=== PATIENT | female | born 1935 | race Caucasian/White ===

== ENCOUNTER 2016-12-30 09:59 | Observation (INO) | payer MEDICARE, OTHER ==
[2016-12-30 11:06] LABS: URINE MUCUS NONE SEEN (Up to 25%); URINE RBC NONE SEEN (0-5/hpf); URINE SQUAMOUS EPITHELIAL CELL NONE SEEN (<= 15/hpf); URINE WBC NONE SEEN (0-4/hpf)
[2016-12-30 11:17] LABS: URINE APPEARANCE CLEAR; URINE COLOR YELLOW
[2016-12-30 11:18] LABS: URINE BILIRUBIN NEGATIVE (NEGATIVE); URINE BLOOD NEGATIVE (NEGATIVE); URINE GLUCOSE NORMAL (NEGATIVE); URINE KETONE NEGATIVE (NEGATIVE); URINE LEUKOCYTE ESTERASE NEGATIVE (NEGATIVE); URINE NITRITE NEGATIVE (NEGATIVE); URINE PH 5.5 (5-7); URINE PROTEIN NEGATIVE (NEG - TRACE); URINE UROBILINOGEN 0.2mg/dL (Normal) (NEG-1mg/dL)
[2016-12-30 11:30] LABS: BASOPHILS 0.3 % (0.0-2.0); EOSINOPHILS 3.2 % (0.0-6.0); EOSINOPHILS# 0.1 X 10^3uL (0.0-0.4); HEMATOCRIT 34.5 % (36.0-48.0); HEMOGLOBIN 11.7 g/dL (12.0-16.0); LYMPHOCYTES 22.5 % (20.0-40.0); LYMPHOCYTES# 0.9 X 10^3uL (0.8-3.8); MEAN CORPUS. HGB CONCENTRATION 34.1 g/dL (32.0-36.0); MEAN CORPUSCULAR HEMOGLOBIN 32.9 pg (29.0-35.0); MEAN PLATELET VOLUME 7.2 fL (7.4-10.4); MONOCYTES 0.8 % (2.0-10.0); NEUTROPHILS 73.2 % (54.0-75.0); NEUTROPHILS# 2.8 X 10^3uL (2.6-6.7); PLATELET COUNT 178 X 10^3uL (130-440); RED BLOOD COUNT 3.57 X 10^6uL (4.20-6.10); RED CELL DISTRIBUTION WIDTH 12.4 % (11.5-14.5); URINE TRANSITIONAL EPI CELL NONE SEEN (<=5/hpf); WHITE BLOOD COUNT 3.9 X 10^3uL (3.9-10.7)
[2016-12-30 11:31] LABS: URINE BACTERIA NONE SEEN (<10/hpf)
[2016-12-30 11:32] LABS: URINE AMORPHOUS SEDIMENT NONE SEEN (Up to 25%)
[2016-12-30 11:38] LABS: A/G RATIO 1.2; ALKALINE PHOSPHATASE 75 U/L (38-126); ALT 20 U/L (9-52); AST 22 U/L (14-36); BILIRUBIN, TOTAL 0.6 mg/dL (0.2-1.3); BLOOD UREA NITROGEN 22 mg/dL (7-17); CALCIUM 9.6 mg/dL (8.4-10.2); CHLORIDE 98 mmol/L (98-107); GLUCOSE 100 mg/dL (70-100); LIPASE 120 U/L (23-300); POTASSIUM 4.1 mmol/L (3.5-5.1); SODIUM 135 mmol/L (137-145); TOTAL PROTEIN 7.3 g/dL (6.3-8.2)
[2016-12-30] MEDS ORDERED: ZOLPIDEM TARTRATE 5 MG TABLET PO PRN (12:52)
[2016-12-30] MEDS ORDERED: MAG-AL PLUS XS SUSP 30 ML UDC PO PRN (12:52)
[2016-12-30] MEDS ORDERED: HOME MEDICATION LIST NEEDED 1 EA EACH MC ONE (12:52)
[2016-12-30] MEDS ORDERED: ACETAMINOPHEN 325 MG TABLET PO PRN (12:52)
[2016-12-30] MEDS ORDERED: ONDANSETRON ODT 4 MG TAB.RAPDIS PO PRN (13:06)
--- NOTE | 2016-12-30 13:11 | ER NURSING DOCUMENTATION ---
Nurse's Notes [facility] Name:Kami Dalal Age:81 yrs Sex:Female :1935 Arrival Date:12/30/2016 Time:09:59 Bed4 Private MD:Paulo Atkins Diagnosis:Weakness;Difficulty Walking;Dehydration Presentation: 12/30 10:02 Presenting complaint: Patient states: Pt has been steadily getting weaker, getting tg chemo. Recent Diarrhea and vomiting (none today though). No fevers or chills. Transition of care: patient was not received from another setting of care. 10:02 Method Of Arrival: EMS: courtesy ride tg 10:02 Acuity: DELROY 2 tg Triage Assessment: 11:05 General: Appears in no apparent distress, Behavior is anxious, cooperative. Pain:. tg Pain: Denies pain. EENT:. Neuro: Level of Consciousness is awake, alert, Pt is a&o x4, but a little slow to respond. Reports feeling tired, weak, and dizzy, even laying down. Weakness Gait is unsteady, Speech Facial symmetry appears normal, Reports dizziness. Cardiovascular: Capillary refill < 3 seconds Rhythm is sinus rhythm. Respiratory: Respiratory effort is even, unlabored, Denies shortness of breath. GI:. Derm: Skin is pale. 13:09 Respiratory: Onset: The symptoms/episode began/occurred at an unknown time. the patient lp has mild shortness of breath. Historical: - Allergies: No known drug Allergies; - Home Meds: 1. Ocuvite oral 2. B Complex oral 3. multivitamin with minerals oral 4. Hydrocortisone Topical - PMHx: Eczema; Pseudophakia; Dry Eye Syndrome; esophageal and stomach cancer; Chest Pain (November 01, 2015); - PSHx: CHOLECYSECTOMY; - Tetanus: < 10 years. - Ebola Screening: : Patient negative for fever greater than or equal to 101.5 degrees Fahrenheit, and additional compatible Ebola Virus Disease symptoms. Patient denies exposure to infectious person. Patient denies travel to an Ebola-affected area in the 21 days before illness onset. No symptoms or risks identified at this time. . - Immunization history: Pneumococcal vaccine status is unknown, Flu Vaccine unknown. - Social history: Smoking status: Patient states was never smoker of tobacco. Screenin:09 Infectious Disease Risk Unable to Obtain. Abuse screen: Denies threats or abuse. Denies tg injuries from another. Nutritional screening: No deficits noted. Assessment: 12:09 Reassessment:. tg 13:09 Respiratory: Airway is patent Breath sounds are clear bilaterally. lp Vital Signs: 10:12 BP 135 / 82; Pulse 84; Resp 20; Temp 98(O); Pulse Ox 98% on R/A; Weight 49.9 kg (R); tg Height 5 ft. 4 in. (162.56 cm) (R); Pain 0/10; 13:09 BP 136 / 67; lp 10:12 Body Mass Index 18.88 (49.90 kg, 162.56 cm) tg ED Course: 10:00 Patient arrived in ED. ds 10:01 Paulo Atkins MD is Private Physician. ds 10:01 Osei Marcial MD is Attending Physician. clem 10:01 Vivek Carver RN is Primary Nurse. tg 10:04 Triage completed. tg 10:37 EKG done. (by ED staff). Reviewed by Osei Marcial MD. tg 10:49 Inserted Accessed Port-a-Cath using accessed w/ # 20 Galindo needle, sterile technique, tg per hospital protocol. Clean & dry. Good blood return. 12:03 Paulo Atkins MD is Admitting Physician. 12:14 Assisted to bathroom. rh 13:09 Valuables Remains with patient. lp Administered Medications: 10:48 Drug: NS 0.9% 1000 ml; Route: IV; Rate: bolus; Site: left subclavian; Delivery: [place] tg Tubing; 11:30 Follow up: IV Status: Completed infusion; IV Intake: 1000ml rh Intake: 11:30 IV: 1000ml; Total: 1000ml. rh Outcome: 12:04 Decision to Admit by Provider. clem 13:08 Admitted to Med/surg accompanied by nurse. lp 13:08 Condition: stable 13:08 Report given to Madalyn Vines RN 13:08 Instructed on need to admit 13:10 Patient left the ED. lp Signatures: Vivek Carver RN RN Amara Claudio RN RN lp Srot, Asia, Reg Reg Osei Marcial MD MD Marium Basilio
--- NOTE | 2016-12-30 13:11 | ER PHYSICIAN DOCUMENTATION ---
Physician Documentation [facility] Name:Kami Dalal Age:81 yrs Sex:Female :1935 Arrival Date:12/30/2016 Time:09:59 Bed4 Private MD:Paulo Atkins ED, John Disposition: 12/30/16 12:04 Admit ordered for Paulo Atkins. Preliminary diagnosis are Weakness, Difficulty Walking, Dehydration. - Bed requested for Medical/Surgical. - Condition is Fair. - Problem is new. - Symptoms are unchanged. 23 HR OBS Yes HPI: 12/30 11:02 This 81 yrs old Female presents to ER via EMS with complaints of Shortness Of jm Breath. 11:02 The patient's problem is reported as weakness, that is generalized. Onset: The jm symptom(s)/episode began/occurred yesterday, and became worse today. Duration: The episode is continuous. Context: Possible contributing factors include: chemo last week. The symptoms are aggravated by nothing. Associated signs and symptoms: Pertinent positives: weakness, mental slowness. Severity of symptoms: At their worst the symptoms were severe. The patient has not experienced similar symptoms in the past. The patient has been recently seen by a physician: Dr. Mcgill . Pt here for weakness. Pt w hx of advanced esophageal CA that is only amenable to chemo. Pt can only eat soft food and liquid. . Pt was supposed to make it down to [facility] today for labs, but was too weak to get out of bed. She came to the ER instead. She can barely get up and feels that she is foggy. She denies pain or trouble breathing. She had some vomiting and diarrhea 2 days ago. She has been trying to keep hydrated. . Historical: - Allergies: No known drug Allergies; - Home Meds: 1. Ocuvite oral 2. B Complex oral 3. multivitamin with minerals oral 4. Hydrocortisone Topical - PMHx: Eczema; Pseudophakia; Dry Eye Syndrome; esophageal and stomach cancer; Chest Pain (November 01, 2015); - PSHx: CHOLECYSECTOMY; - Tetanus: < 10 years. - Ebola Screening: : Patient negative for fever greater than or equal to 101.5 degrees Fahrenheit, and additional compatible Ebola Virus Disease symptoms. Patient denies exposure to infectious person. Patient denies travel to an Ebola-affected area in the 21 days before illness onset. No symptoms or risks identified at this time. . - Immunization history: Pneumococcal vaccine status is unknown, Flu Vaccine unknown. - Social history: Smoking status: Patient states was never smoker of tobacco. ROS: 11:35 Constitutional: Positive for fatigue, malaise, Negative for chills, fever. 11:35 ENT: Negative for sinus congestion, sinus pain, sore throat. 11:35 Cardiovascular: Negative for chest pain. 11:35 Respiratory: Negative for cough, shortness of breath. 11:35 Abdomen/GI: Positive for nausea, vomiting, diarrhea, Negative for abdominal pain. 11:35 : Negative for urinary symptoms, pelvic pain. 11:35 Neuro: Positive for weakness, Negative for dizziness, headache. 11:35 All other systems are negative. Exam: 11:35 Constitutional: The patient appears alert, awake, frail. 11:35 Eyes: Periorbital structures: appear normal, Conjunctiva: normal. 11:35 ENT: Nose: is normal, Voice: is normal. 11:35 Neck: Thyroid: appears normal, Trachea: is midline with no obvious abnormalities. 11:35 Cardiovascular: Rate: normal, Rhythm: irregular. 11:35 Respiratory: Respirations: normal, Breath sounds: are normal. 11:35 Abdomen/GI: Bowel sounds: normal, Palpation: abdomen is soft and non-tender. 11:35 Back: pain, is absent, CVA tenderness, is absent. 11:35 Skin: Appearance: Color: pink, Turgor: is good. 11:35 Neuro: Mentation: lucid, slow to respond, Memory: is normal. 11:35 Psych: Behavior/mood is pleasant, cooperative, Affect is calm. Vital Signs: 10:12 BP 135 / 82; Pulse 84; Resp 20; Temp 98(O); Pulse Ox 98% on R/A; Weight 49.9 kg (R); tg Height 5 ft. 4 in. (162.56 cm) (R); Pain 0/10; 13:09 BP 136 / 67; lp 10:12 Body Mass Index 18.88 (49.90 kg, 162.56 cm) tg MDM: 10:01 Patient medically screened. 12:05 Differential diagnosis: metabolic disorder, dehydration. Data reviewed: vital signs, nurses notes, old medical records, lab test result(s), EKG, radiologic studies, and as a result, I will admit patient. Test interpretation: by ED physician or midlevel provider: plain radiologic studies, ECG. Counseling: I had a detailed discussion with the patient and/or guardian regarding: the historical points, exam findings, and any diagnostic results supporting the discharge/admit diagnosis, lab results, radiology results, the need for further work-up and treatment in the hospital. ECG:. Physician consultation: Paulo Atkins MD regarding admission, and will see patient shortly, later today. ED course: Pt too weak to stand. Most likely deconditioning from her chemo and low appetite. . 12/30 11:31 Order name: CBC AUTO DIF, MDIF/RMOR IF IND; Complete Time: 11: [facility] 12/30 11:31 Order name: UA W/ MICRO -CULTURE IF IND; Complete Time: 11: [facility] 12/30 11:43 Order name: COMPREHENSIVE METABOLIC PANEL; Complete Time: 11: [facility] 12/30 11:43 Order name: LIPASE; Complete Time: 11: [facility] 12/31 06:06 Order name: COMPREHENSIVE METABOLIC PANEL [facility] 12/31 06:16 Order name: CBC AUTO DIF, MDIF/RMOR IF IND [facility] 12/30 15:05 Order name: CHEST; SINGLE [place]IEW [id number] [facility] 12/30 10:24 Order name: Pulse Ox Continuous; Complete Time: 10:49 12/30 10:24 Order name: Continuous Cardiac Monitoring; Complete Time: 10 12/30 10:24 Order name: 12-lead EKG; Complete Time: : EC:05 Rhythm is irregular with Multifocal PVCs. QRS interval is normal. QT interval is jm normal. No Q waves. T waves are Normal. No ST changes noted. Dispensed Medications: 10:48 Drug: NS 0.9% 1000 ml; Route: IV; Rate: bolus; Site: left subclavian; Delivery: [place] tg Tubing; 11:30 Follow up: IV Status: Completed infusion; IV Intake: 1000ml Signatures: Vivek Carver RN RN tg Pavlish, Lena, RN RN lp Meyer, John, MD MD jm Hofsess, Rachel
[2016-12-30] MEDS: LACTATED RINGERS 1,000 ML IV SCH (14:20)
--- NOTE | 2016-12-30 14:29 | RADIOLOGY REPORT ---
A limited single portable view of the chest is correlated with CT scan dated 02/2017. Heart and vessels are stable and unremarkable. The lung hoover are clear. No infiltrate, fluid or pneumothorax is seen. There has been interval placement of left sided PICC line. Position appears appropriate. Again noted is dextroscoliosis. IMPRESSION: Interval placement of left PICC line. No acute cardiopulmonary abnormality is identified. MTDD
[2016-12-30] MEDS ORDERED: MECLIZINE HCL 12.5 MG TABLET PO PRN (17:13)
[2016-12-30] MEDS ORDERED: MECLIZINE HCL 12.5 MG TABLET PO SCH (21:00)
[2016-12-31] MEDS ORDERED: MAGIC MOUTHWASH PO SCH
[2016-12-31] MEDS: LACTATED RINGERS 1,000 ML IV SCH ×2 (02:55→13:46)
[2016-12-31 05:59] LABS: A/G RATIO 1.1; ALBUMIN 3.5 g/dL (3.5-5.0); ALKALINE PHOSPHATASE 70 U/L (38-126); ALT 27 U/L (9-52); AST 19 U/L (14-36); BILIRUBIN, TOTAL 0.7 mg/dL (0.2-1.3); BLOOD UREA NITROGEN 11 mg/dL (7-17); CALCIUM 9.1 mg/dL (8.4-10.2); CHLORIDE 103 mmol/L (98-107); GLUCOSE 84 mg/dL (70-100); POTASSIUM 3.9 mmol/L (3.5-5.1); SODIUM 137 mmol/L (137-145); TOTAL PROTEIN 6.6 g/dL (6.3-8.2)
[2016-12-31 06:12] LABS: HEMOGLOBIN 11.1 g/dL (12.0-16.0); MEAN CORPUS. HGB CONCENTRATION 33.7 g/dL (32.0-36.0); MEAN CORPUSCULAR HEMOGLOBIN 32.1 pg (29.0-35.0); RED BLOOD COUNT 3.46 X 10^6uL (4.20-6.10)
[2016-12-31 06:13] LABS: BASOPHILS 0.2 % (0.0-2.0); EOSINOPHILS 4.6 % (0.0-6.0); EOSINOPHILS# 0.1 X 10^3uL (0.0-0.4); LYMPHOCYTES 39.6 % (20.0-40.0); LYMPHOCYTES# 0.9 X 10^3uL (0.8-3.8); MEAN PLATELET VOLUME 7.6 fL (7.4-10.4); MONOCYTES 1.1 % (2.0-10.0); NEUTROPHILS 54.5 % (54.0-75.0); NEUTROPHILS# 1.2 X 10^3uL (2.6-6.7); PLATELET COUNT 159 X 10^3uL (130-440); RED CELL DISTRIBUTION WIDTH 11.9 % (11.5-14.5)
[2016-12-31 06:15] LABS: WHITE BLOOD COUNT 2.3 X 10^3uL (3.9-10.7)
[2016-12-31] MEDS ORDERED: DOCUSATE SODIUM 100 MG CAPSULE PO SCH (09:15)
[2016-12-31] MEDS: MAGIC MOUTHWASH 90 ML BTL PO PRN ×2 (09:21→12:41)
[2016-12-31 10:52] VITALS: RESP 20
--- NOTE | 2016-12-31 11:20 | HISTORY & PHYSICAL ---
DATE OF ADMISSION: 12/30/16 ATTENDING PHYSICIAN: Paulo Atkins MD CHIEF COMPLAINT: Generalized weakness. HISTORY OF PRESENT ILLNESS: Patient has been recently diagnosed with a gastroesophageal cancer for which she is currently seeing Dr. Garay. She received her first chemotherapy on 12/22/16, 8 days ago. In the last 4 days, she has becoming increasingly and profoundly weak to the point that she has been unable to get out of bed in the last day. She has more difficulty thinking. She had some vomiting and diarrhea 2 days ago, but not since. She had some diffuse severe abdominal pain 3 days ago that resolved spontaneously, and has not had abdominal pain since. She has a slight cough and sore throat and mouth sores. No fevers, chills, nausea, constipation, myalgias, arthralgias, headache, dysuria, sinus pressure, coryza or postnasal drainage. She has been trying to push fluids but overall has had poor fluid and food intake. Her main form of nutrition has been Ensure and yogurt smoothies. She has a port in place. No falls. However, she feels that she is a high fall risk. ALLERGIES: None. MEDICATIONS Ondansetron PRN. Promethazine PRN. PAST MEDICAL HISTORY 1. Macular degeneration. 2. Gastroesophageal cancer followed by Dr. Adan and Dr. Garay. 3. Cholecystectomy 1981. 4. Bilateral cataract surgery. SOCIAL HISTORY: , 1 child and 2 stepchildren. 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 No smoking. Rare alcohol. FAMILY HISTORY: Father at 39 of myocardial infarction. Mother at 70 of asthma exacerbation. Brother of an myocardial infarction. REVIEW OF SYSTEMS: No heart, lung, kidney, liver, diabetes, thyroid, seizures, peptic ulcer disease, hypertension, hyperlipidemia, skin, allergy or bleeding disorders. No urinary problems. PREVENTATIVE HEALTH: Gets annual flu shot. Had Pneumovax. Prevnar 2014. PHYSICAL EXAMINATION VITAL SIGNS: Blood pressure 135/82, pulse 84, respiratory rate 20, temperature 98.0. Room air pulse oxygen 98%. Weight 49.9 kilos, height 5 foot 4 inches. GENERAL: Thin elderly female, NAD, alert and oriented x3. She appears profoundly weak and has decreased skin turgor. HEENT: EOMI. PERRL. Fundi difficult to visualize. Normal conjunctivae. TMs normal. No coryza. Pharynx not injected. Midline structures. Dry mouth. NECK: No lymphadenopathy. No thyromegaly. No carotid bruits. Neck supple. CHEST: Clear. No rales, rhonchi or wheezes. Good breath sounds and symmetry throughout. COR: RRR without murmurs, gallops, rubs or clicks. No jugular venous distention. No ectopy. ABDOMEN: Soft, nontender. No hepatosplenomegaly. No masses. No bruits. No inguinal nodes. Bowel sounds present. LOWER EXTREMITIES: No edema. Good peripheral pulses present. NEUROLOGIC: Did not have patient try to sit or stand but she was able to move arms and legs in bed. Sensory intact. DATA: White blood cell count 3.9, hemoglobin and hematocrit 11.7/34.5, platelets 178,000. Normal MCV. Sodium 135, potassium 4.1, chloride 98, CO2 24, BUN 22, creatinine 0.5, glucose 100, calcium 9.6, total bilirubin 0.6, AST 22, ALT 20, alkaline phosphatase 75, total protein 7.3, albumin 4.0, lipase 120. Urinalysis specific gravity 1.010, negative dipstick. Chest x-ray and EKG were reportedly unremarkable per the Emergency Room physician. ASSESSMENT 1. Profound weakness and dehydration, presumably related to recent chemotherapy. 2. Gastroesophageal cancer. PLAN 1. Gentle IV hydration with lactated ringers. 2. Physical therapy. 3. Dietary consult. 4. supervisor hand workers consult to investigate patient's needs at home, code status, etc. 5. Port care. 6. Up in chair t.i.d. and ambulate with assist t.i.d. if able. Copies to: Dr. Garay, [facility]
[2016-12-31 14:57] VITALS: BP 130/71; PULSE 56; TEMP 98.5; O2SAT 94
--- NOTE | 2016-12-31 15:12 | PROGRESS NOTE: IM SOAP ---
IM: PN Subjective Interval history: Feeling more energetic today. Was able to walk hallway and stairs today. Fall risk reduced. Pt unclear whether she wants to continue chemo. She will discuss this with Dr Garay. I spoke with Dr Garay by phone yest. IM: PN Objective Exam - I&O/Vital Signs I&O: Intake & Output 12/31/16 12/31/16 12/31/16 05:59 13:59 21:59 Intake Total 1246 220 Output Total 2200 Balance -954 220 Intake: IV 978 Left Subclavian 978 Oral 268 Oral Supplement 220 Output: Urine 2200 Other: Urine Appearance Clear Clear Urine Color Yellow Yellow Voiding Method Toilet Toilet # Voids 4 Vital Signs: Last Vital Signs Temp 36.9 C 12/31/16 14:56 Pulse 56 L 12/31/16 14:56 Resp 20 12/31/16 14:56 BP 130/71 12/31/16 14:56 Pulse Ox 94 12/31/16 14:56 Oxygen Delivery Method Room Air - Constitutional General appearance: Present: thin, other (frail) - Respiratory Respiratory exam: Present: clear - Cardiovascular Cardiovascular exam: Present: RRR - GI/Abdominal GI/Abdominal exam: Present: soft. Absent: tenderness - Extremities Exam Extremities exam: Absent: edema - Lab Labs: Laboratory Last Values WBC 2.3 X 10^3uL (3.9-10.7) L* 12/31/16 05:25 RBC 3.46 X 10^6uL (4.20-6.10) L 12/31/16 05:25 Hgb 11.1 g/dL (12.0-16.0) L 12/31/16 05:25 Hct 33.0 % (36.0-48.0) L 12/31/16 05:25 MCV 95.0 fL (80.0-100.0) 12/31/16 05:25 MCH 32.1 pg (29.0-35.0) 12/31/16 05:25 MCHC 33.7 g/dL (32.0-36.0) 12/31/16 05:25 RDW 11.9 % (11.5-14.5) 12/31/16 05:25 Plt Count 159 X 10^3uL (130-440) 12/31/16 05:25 MPV 7.6 fL (7.4-10.4) 12/31/16 05:25 Neutrophils % 54.5 % (54.0-75.0) 12/31/16 05:25 Lymphocytes % 39.6 % (20.0-40.0) 12/31/16 05:25 Eosinophils % 4.6 % (0.0-6.0) 12/31/16 05:25 Basophils % 0.2 % (0.0-2.0) 12/31/16 05:25 Neutrophils # 1.2 X 10^3uL (2.6-6.7) L 12/31/16 05:25 Lymphocytes # 0.9 X 10^3uL (0.8-3.8) 12/31/16 05:25 Monocytes 1.1 % (2.0-10.0) L 12/31/16 05:25 Monocytes # 0.0 X 10^3uL (0.2-1.0) L 12/31/16 05:25 Eosinophils # 0.1 X 10^3uL (0.0-0.4) 12/31/16 05:25 Basophils # 0.0 X 10^3uL (0.0-0.1) 12/31/16 05:25 Sodium 137 mmol/L (137-145) 12/31/16 05:25 Potassium 3.9 mmol/L (3.5-5.1) 12/31/16 05:25 Chloride 103 mmol/L (98-107) 12/31/16 05:25 Carbon Dioxide 26 mmol/L (22-30) 12/31/16 05:25 BUN 11 mg/dL (7-17) 12/31/16 05:25 Creatinine 0.5 mg/dL (0.5-1.0) 12/31/16 05:25 GFR Calculation Not Reportable 12/31/16 05:25 Glucose 84 mg/dL (70-100) 12/31/16 05:25 Calcium 9.1 mg/dL (8.4-10.2) 12/31/16 05:25 Total Bilirubin 0.7 mg/dL (0.2-1.3) 12/31/16 05:25 AST 19 U/L (14-36) 12/31/16 05:25 ALT 27 U/L (9-52) 12/31/16 05:25 Alkaline Phosphatase 70 U/L (38-126) 12/31/16 05:25 Total Protein 6.6 g/dL (6.3-8.2) 12/31/16 05:25 Albumin 3.5 g/dL (3.5-5.0) 12/31/16 05:25 Albumin/Globulin Ratio 1.1 12/31/16 05:25 Lipase 120 U/L (23-300) 12/30/16 10:55 Urine Color Yellow 12/30/16 10:55 Urine Appearance Clear 12/30/16 10:55 Urine pH 5.5 (5-7) 12/30/16 10:55 Ur Specific [place] 1.010 (0.001-1.035) 12/30/16 10:55 Urine Protein Negative (NEG - TRACE) 12/30/16 10:55 Urine Ketones Negative (NEGATIVE) 12/30/16 10:55 Urine Blood Negative (NEGATIVE) 12/30/16 10:55 Urine Nitrate Negative (NEGATIVE) 12/30/16 10:55 Urine Bilirubin Negative (NEGATIVE) 12/30/16 10:55 Urine Urobilinogen 0.2mg/dl (normal) (NEG-1mg/dL) 12/30/16 10:55 Ur Leukocyte Esterase Negative (NEGATIVE) 12/30/16 10:55 Urine RBC None seen (0-5/hpf) 12/30/16 10:55 Urine WBC None seen (0-4/hpf) 12/30/16 10:55 Ur Squamous Epith Cells None seen (<= 15/hpf) 12/30/16 10:55 Ur Transition Epith Cell None seen (<=5/hpf) 12/30/16 10:55 Amorphous Sediment None seen (Up to 25%) 12/30/16 10:55 Urine Bacteria None seen (<10/hpf) 12/30/16 10:55 Urine Mucus None seen (Up to 25%) 12/30/16 10:55 Urine Glucose Normal (NEGATIVE) 12/30/16 10:55 Assessment and Plan - Date of Encounter Date of Encounter: 12/31/16 (1) Weakness Status: Acute Assessment and plan: Improved with hydration PT eval Current Visit: Yes (2) Dehydration Status: Acute Assessment and plan: Improved with hydration Current Visit: Yes (3) Gastroesophageal cancer Status: Acute Assessment and plan: F/U Dr Garay outpt Pt had many questions about chemo, radiation, hospice, stopping treatment, quality of life, etc Current Visit: Yes (4) Neutropenia Status: Acute Assessment and plan: WBC 2.3 Will monitor nelson post chemo on outpt basis with CBC Fri and Mon Current Visit: Yes - Time Spent With Patient Total time spent with greater than 50% in coordination of care (as documented) at patient's floor/unit and/or counseling patient: Quality Questions - VTE Prophylaxis Assessment VTE Present on Admission?: No Patient at risk for venous thromboembolism?: No VTE Risk Level: Moderate Risk Pharmaceutical VTE prophylaxis contraindication reason: not indicated Mechanical VTE prophylaxis contraindication reason: not indicated
--- NOTE | 2017-01-03 10:33 | DISCHARGE SUMMARY ---
DATE OF ADMISSION: 12/30/16 DATE OF DISCHARGE: 12/31/16 ATTENDING PHYSICIAN: Paulo Atkins MD DIAGNOSES 1. Generalized weakness, improved. 2. Dehydration, improved. 3. Gastroesophageal cancer. 4. Neutropenia secondary to chemotherapy with discharge white blood cell count 2.3. HISTORY OF PRESENT ILLNESS: This is an 89-year-old female who has been recently diagnosed with gastroesophageal cancer for which she is currently seeing Dr. Garay. She received her first chemotherapy on 12/22/16, 8 days prior to admission. In the last 4 days prior to admission, she has becoming increasingly and profoundly weak to the point that she has been unable to get out of bed in the last day prior to admission. She has more difficulty thinking clearly. She had some vomiting and diarrhea 2 days prior to admission, but not since. She had some diffuse severe abdominal pain 3 days prior to admission that resolved spontaneously, and has not recurred. She has a slight cough and sore throat and mouth sores. No fevers, chills, nausea, constipation, myalgias, arthralgias, headache, dysuria, sinus pressure, coryza or postnasal drainage. She had been trying to push fluids but overall has had poor fluid and food intake. Her main form of nutrition has been Ensure and yogurt smoothies. She has a port in place. No falls. However, she feels that she is a high fall risk. Please see previously dictated history and physical for further details. HOSPITAL COURSE: Her admission white blood cell count was 3.9 with hemoglobin and hematocrit 11.7/34.5 and platelets 178,000. Patient was admitted with profound weakness and dehydration, presumably related to recent chemotherapy. Gentle IV hydration was provided with lactated ringers. Dietary consult and social work case manager consult were provided. Physical therapy assessed her ability to ambulate safely. By the next day, she overall felt dramatically better and more energetic. She was able to walk the hallways and stairs and fall risk was felt to be reduced. Patient is unsure whether she wants to continue chemotherapy in the future or not, and I encouraged her to discuss this with Dr. Garay. White blood cell count did drop down to 2.3 at the time of discharge with absolute neutrophil count 1200. Will need to monitor the Garcia post chemotherapy on an outpatient basis. DISCHARGE INSTRUCTIONS: Patient may participate in activities as able. She was able to ambulate and be up in a chair t.i.d. She is on a regular pureed diet. She will drink 1 Ensure plus can 3 times a day, diluted with milk, and will have a magic cup with dinner daily. She will use Magic mouthwash q.4 hours as needed for mouth discomfort. She has a follow up appointment with Dr. Garay next week. DISCHARGE MEDICATIONS Docusate 100 mg p.o. b.i.d. PRN. Magic mouthwash 15 mL swish and swallow q.4 hours PRN mouth pain. Zofran OTD 8 mg p.o. q.8 hours PRN. Prochlorperazine 10 mg p.o. q.6 hours PRN. copies to: Dr. Garay MTDD
== END 2016-12-31 15:18 | disposition home or self-care (01) ==
LOC: ER 09:59 → IN 13:00
PROVIDERS: ADMIT Family Medicine; ATTEND Family Medicine
DX: R55 Syncope and collapse (principal); E86.0 Dehydration; C16.0 Malignant neoplasm of cardia; D70.1 Agranulocytosis secondary to cancer chemotherapy
CPT/HCPCS: 36415; 71010; 80053; 81001; 83690; 85025; 93005; 93010; 96360; 99217; 99220; 99285; G0378; G8978; G8979; G8996; G8997; G8998; J1642; J7120